=== PATIENT | male | born 1965 | race Caucasian/White ===

== ENCOUNTER 2017-11-29 19:16 | Emergency (ER) | payer SELFPAY ==
[~2017-11-29] VITALS: Ht 182.9 cm; Wt 99.8 kg
[~2017-11-29 19:16] MED LIST: ALBU90OI INH; Bactrim Ds Tab1 EACH PO; CEPH500 PO; CYCL10 PO; ERYT1OIN BOTHEYES; HYDACE10B PO; HYDACE5 PO; IBUP600 PO; METPRE4DP PO; Mupirocin22 GM TOP; NAPR500 PO; Norco 5-325 Ta1 EACH PO; PENVK250 PO; PRODEXEL PO; SULTRIDS PO; TRAM50 PO; TYLENOL PRN
[2017-11-29] MEDS ORDERED: Bactrim Ds Tab1 EACH PO (19:48)
[2017-11-29] MEDS ORDERED: CEPH500 PO (19:48)
== END 2017-11-29 20:10 | disposition home or self-care (01) ==
LOC: ER 19:16
DX: S71.111A Laceration without foreign body, right thigh, initial encounter (principal); L03.115 Cellulitis of right lower limb; Z23 Encounter for immunization; F17.200 Nicotine dependence, unspecified, uncomplicated; W26.8XXA Contact with other sharp object(s), not elsewhere classified, initial encounter
CPT/HCPCS: 90471; 90714; 99283

== ENCOUNTER 2017-12-04 23:01 | Emergency (ER) | payer SELFPAY ==
[~2017-12-04] VITALS: Ht 182.9 cm; Wt 99.8 kg
[2017-12-04] MEDS ORDERED: Bactrim Ds Tab1 EACH PO (23:34)
[2017-12-04] MEDS ORDERED: CEPH500 PO (23:34)
== END 2017-12-04 23:50 | disposition home or self-care (01) ==
LOC: ER 23:01
DX: L03.115 Cellulitis of right lower limb (principal); F17.210 Nicotine dependence, cigarettes, uncomplicated
CPT/HCPCS: 99283

== ENCOUNTER 2023-05-19 15:53 | Emergency (ER) | payer OTHER ==
[~2023-05-19] VITALS: Ht 182.9 cm; Wt 102.5 kg
[2023-05-19 16:32] LABS: BASOPHILS ABSOLUTE AUTO 0.03 K/mm3 (0.00-0.23); BASOPHILS PERCENT AUTO 1 % (0-2); EOSINOPHILS ABSOLUTE AUTO 0.14 K/mm3 (0.00-0.68); EOSINOPHILS PERCENT AUTO 2 % (0-6); Hematocrit 42.5 % (37.0-53.0); Hemoglobin 14.9 g/dL (13.5-17.5); IMMATURE GRAN ABSOLUTE AUTO 0.01 K/mm3 (0.00-0.10); IMMATURE GRAN PERCENT AUTO 0 % (0-1); LYMPHOCYTES ABSOLUTE AUTO 1.97 K/mm3 (0.84-5.20); LYMPHOCYTES PERCENT AUTO 32 % (21-46); MONOCYTES ABSOLUTE AUTO 0.58 K/mm3 (0.16-1.47); MONOCYTES PERCENT AUTO 9 % (4-13); Mean Corpuscular HGB 29.8 pg (26.0-34.0); Mean Corpuscular HGB Conc 35.1 g/dL (31.5-36.5); Mean Corpuscular Volume 85 fL (80-100); Mean Platelet Volume 9.7 fL (9.1-12.4); NEUTROPHILS ABSOLUTE AUTO 3.46 K/mm3 (1.96-9.15); NEUTROPHILS PERCENT AUTO 56 % (41-73); Platelet Count 244 K/mm3 (150-400); RDW Coefficient Variation 13.4 % (11.7-14.2); RDW Standard Deviation 41.9 fL (35.1-46.3); White Blood Cell Count 6.19 K/mm3 (4.00-11.30)
[2023-05-19 16:58] LABS: Albumin/Globulin Ratio 0.9 (0.8-1.8); Bilirubin, Total 0.5 mg/dL (0.1-1.0); Bun/Creatinine Ratio 19.2 (12.0-20.0); Calcium, Blood 9.2 mg/dL (8.5-10.1); Creatinine, Blood 1.25 mg/dL (0.60-1.20); Globulin, Blood 4.4 g/dL (2.2-4.0); Potassium, Blood 3.6 mmol/L (3.5-5.5); Total Protein, Blood 8.4 g/dL (6.4-8.2)
[2023-05-19 18:30] VITALS: BP 148/86
== END 2023-05-19 19:22 | disposition home or self-care (01) ==
LOC: ER 15:53
PROVIDERS: Physician Assistant
DX: E87.70 Fluid overload, unspecified (principal); F17.210 Nicotine dependence, cigarettes, uncomplicated; Z79.2 Long term (current) use of antibiotics
CPT/HCPCS: 71046; 80053; 83880; 84484; 85025; 93005; 93010; 96374; 99284-25; J1940

== ENCOUNTER 2024-11-07 12:01 | Emergency (ER) | payer OTHER ==
[~2024-11-07] VITALS: Ht 182.9 cm; Wt 104.3 kg
[2024-11-07 13:30] VITALS: BP 204/133
== END 2024-11-07 14:51 | disposition home or self-care (01) ==
LOC: ER 12:01
DX: L03.115 Cellulitis of right lower limb (principal); F17.210 Nicotine dependence, cigarettes, uncomplicated
CPT/HCPCS: 93971; 99283-25

== ENCOUNTER 2025-02-25 13:57 | Emergency (ER) | payer OTHER ==
[~2025-02-25] VITALS: Ht 182.9 cm; Wt 106.6 kg
[2025-02-25 14:26] VITALS: BP 193/106
[2025-02-25] MEDS ORDERED: Fluorescein Sod 1MG Opth Strips LEFTEYE ONE (15:05)
[2025-02-25] MEDS ORDERED: Tetracaine HCl/Pf 0.5% Opth Soln 4 ml LEFTEYE ONE (15:05)
[2025-02-25] MEDS ORDERED: Diphth,Pertuss(Acell),Tet Vac 0.5 ML VIAL IM ONE (16:15)
== END 2025-02-25 16:27 | disposition home or self-care (01) ==
LOC: ER 13:57
DX: T15.82XA Foreign body in other and multiple parts of external eye, left eye, initial encounter (principal); F17.210 Nicotine dependence, cigarettes, uncomplicated; Z59.89 Other problems related to housing and economic circumstances; W44.E9XA Other non-magnetic metal objects entering into or through a natural orifice, initial encounter
CPT/HCPCS: 70480; 90471; 90715; 99283-25; A9270

== ENCOUNTER 2025-04-12 07:34 | Inpatient (IN) | payer OTHER ==
[~2025-04-12] VITALS: Ht 182.9 cm; Wt 103.6 kg
[2025-04-12 08:09] LABS: BASOPHILS ABSOLUTE AUTO 0.07 K/mm3 (0.00-0.23); BASOPHILS PERCENT AUTO 1 % (0-2); EOSINOPHILS PERCENT AUTO 2 % (0-6); Hematocrit 45.6 % (37.0-53.0); IMMATURE GRAN ABSOLUTE AUTO 0.02 K/mm3 (0.00-0.10); IMMATURE GRAN PERCENT AUTO 0 % (0-1); LYMPHOCYTES ABSOLUTE AUTO 2.58 K/mm3 (0.84-5.20); LYMPHOCYTES PERCENT AUTO 30 % (21-46); MONOCYTES ABSOLUTE AUTO 0.81 K/mm3 (0.16-1.47); MONOCYTES PERCENT AUTO 10 % (4-13); Mean Corpuscular HGB 29.7 pg (26.0-34.0); Mean Corpuscular HGB Conc 32.9 g/dL (31.5-36.5); Mean Corpuscular Volume 90 fL (80-100); Mean Platelet Volume 9.8 fL (9.1-12.4); NEUTROPHILS ABSOLUTE AUTO 4.84 K/mm3 (1.96-9.15); NEUTROPHILS PERCENT AUTO 57 % (41-73); Platelet Count 238 K/mm3 (150-400); RDW Coefficient Variation 13.9 % (11.7-14.2); RDW Standard Deviation 46.1 fL (35.1-46.3); Red Blood Cell Count 5.05 M/mm3 (4.30-5.90); White Blood Cell Count 8.52 K/mm3 (4.00-11.30)
[2025-04-12 08:27] LABS: Albumin, Blood 3.8 g/dL (3.4-5.0); Albumin/Globulin Ratio 0.9 (0.8-1.8); Bilirubin, Total 0.4 mg/dL (0.1-1.0); Bun/Creatinine Ratio 11.4 (12.0-20.0); Calcium, Blood 8.3 mg/dL (8.5-10.1); Creatinine, Blood 1.14 mg/dL (0.60-1.20); Globulin, Blood 4.4 g/dL (2.2-4.0); Potassium, Blood 4.7 mmol/L (3.5-5.5); Total Protein, Blood 8.2 g/dL (6.4-8.2)
[2025-04-12] MEDS ORDERED: Metoprolol Tartrate 1 MG/ML 5 ML VIAL IV ONE (09:10)
[2025-04-12] MEDS ORDERED: Furosemide 10 MG/ML 4ML Vial IV ONE (09:10)
[2025-04-12] MEDS ORDERED: HYDROmorphone HCl/Pf 1MG SYR IV ONE (09:15)
[2025-04-12] MEDS ORDERED: Nitroglycerin 0.4 MG SUBL SL ONE (09:50)
[2025-04-12 11:33] LABS: U Amphetamine Screen DETECTED; U Barbituate Screen Not Detected; U Benzodiazapine Screen Not Detected; U Buprenorphine Screen Not Detected; U Cannabinoids Screen Not Detected; U Cocaine Screen Not Detected; U Methadone Screen Not Detected; U Methamphetamine Screen DETECTED; U Opiates Screen Not Detected; U Oxycodone Screen Not Detected; U Phencyclidine Screen Not Detected
[2025-04-12] MEDS ORDERED: Ondansetron 4 MG TAB PO PRN (12:00)
[2025-04-12] MEDS ORDERED: Magnesium Hydroxide Conc 10 ML UDC PO PRN (12:00)
[2025-04-12] MEDS ORDERED: Bisacodyl 10 MG Supp PR PRN (12:00)
[2025-04-12] MEDS ORDERED: Labetalol HCL 5 MG/ML 4ML Injection (Single Dose) IV PRN (12:05)
[2025-04-12] MEDS ORDERED: Acetaminophen 325 MG TABLET PO PRN (12:05)
[2025-04-12] MEDS ORDERED: TraZODone HCl 50 MG Tab PO PRN (12:05)
[2025-04-12 15:21] VITALS: BP 130/109
[2025-04-12] MEDS ORDERED: METO50ER PO (15:34)
[2025-04-12] MEDS ORDERED: ELIQUIS5 M2 PO (15:35)
[2025-04-12] MEDS ORDERED: FURO20 PO (15:35)
[2025-04-12] MEDS ORDERED: POTCHL20ER PO (15:35)
--- NOTE | 2025-04-12 18:41 | NUR ---
SHIFT SUMMARY: PT NEW ADMIT THIS SHIFT. PLEASANT AND COOPERATIVE WITH CARE. INDEPENDENT IN ROOM. NO C/O CHEST PAIN THIS SHIFT. ABDOMEN FIRM AND 1+ EDEMA NOTED TO LOWER EXTREMETIES. TROPONIN TRENDING DOWNWARD. NO SKIN ISSUES. TELE IN PLACE RUNNING AFIB @110 BPM. CALL LIGHT IN REACH. BED IN LOWEST POSITION.
[2025-04-12 19:44] VITALS: BP 121/99
[2025-04-12] MEDS ORDERED: Apixaban 5 MG Tab PO SCH (21:00)
[2025-04-12] MEDS ORDERED: Lactobacil 2-S.Thermo-Bifido 1 1 Cap PO SCH (21:00)
[2025-04-12] MEDS ORDERED: Famotidine 20 MG Tab PO SCH (21:00)
[2025-04-13 00:05] VITALS: BP 131/101
[2025-04-13 05:17] LABS: Hematocrit 44.5 % (37.0-53.0); Hemoglobin 14.7 g/dL (13.5-17.5); Mean Corpuscular HGB 29.4 pg (26.0-34.0); Mean Corpuscular Volume 89 fL (80-100); Platelet Count 220 K/mm3 (150-400); RDW Coefficient Variation 13.9 % (11.7-14.2); RDW Standard Deviation 45.2 fL (35.1-46.3); White Blood Cell Count 8.19 K/mm3 (4.00-11.30)
[2025-04-13 05:29] VITALS: BP 123/104
[2025-04-13 05:44] LABS: Magnesium, Blood 2.2 mg/dL (1.6-2.4)
[2025-04-13 05:46] LABS: Alanine Aminotransfer (ALT/SGP 26 U/L (12-78); Albumin, Blood 3.8 g/dL (3.4-5.0); Alk Phos 86 U/L (50-136); Anion Gap 6 mmol/L (3-11); Aspartate Aminotrans (AST/SGOT 22 U/L (12-37); Bilirubin, Total 0.7 mg/dL (0.1-1.0); Blood Urea Nitrogen 17 mg/dL (8-24); CHOL/HDL RATIO 4.7; CO2, Blood 30 mmol/L (21-32); Calcium, Blood 9.2 mg/dL (8.5-10.1); Chloride, Blood 103 mmol/L (98-108); Cholesterol 145 mg/dL (50-200); Creatinine, Blood 1.21 mg/dL (0.60-1.20); Globulin, Blood 3.9 g/dL (2.2-4.0); Glomerular Filtration Rate 68 (60-); Glucose, Blood 114 mg/dL (70-99); HDL Cholesterol 31 mg/dL (>39); LDL/HDL RATIO 2.8; Low Density Lipoprotein Chol 87 mg/dL (0-110); Potassium, Blood 5.2 mmol/L (3.5-5.5); Sodium, Blood 134 mmol/L (136-145); Total Protein, Blood 7.7 g/dL (6.4-8.2); Triglycerides 133 mg/dL (30-160); Very Low Density Lipoprot Chol 26 mg/dL (6-32)
[2025-04-13 07:28] VITALS: BP 127/102
[2025-04-13] MEDS ORDERED: Nitroglycerin 0.4 MG SUBL SL PRN (07:30)
[2025-04-13] MEDS ORDERED: Morphine Sulfate 4 MG/1 ML Injection IV PRN (07:35)
[2025-04-13] MEDS ORDERED: OxyCODONE HCL 5 MG TAB PO PRN (07:35)
--- NOTE | 2025-04-13 08:12 | NUR ---
PT HAD CALL LIGHT ON AT APPROX 0730. THIS RN WALKED INTO ROOM WHEN PT STATED HE HAD SIGNIFICANT CHEST PAIN. CALLED AND SPOKE WITH DR. MORRIS WITH TELEPHONE ORDERS OF NITROGLYCERIN, STAT EKG, AND STAT TROPONIN. EKG COMPLETED BY BOAT MECHANIC. NITRO X2 PROVIDED WELL PRN IV MORPHINE. EKG SHOWED AFIB c RVR. CHEST PAIN DOWN TO 2/10. CALL LIGHT IN REACH. PT AWARE TO CALL IF EXPERIENCING REPEAT SYMPTOMS.
[2025-04-13] MEDS ORDERED: Metoprolol Tartrate 25 MG Tab PO SCH (09:00)
[2025-04-13] MEDS ORDERED: Spironolactone 12.5 MG TAB PO SCH (09:00)
[2025-04-13] MEDS ORDERED: Enoxaparin 30 MG/0.3 ML SYR SC SCH (09:00)
[2025-04-13] MEDS ORDERED: Furosemide 10 MG/ML 4ML Vial IV SCH (09:00)
[2025-04-13] MEDS ORDERED: Furosemide 10 MG / ML 2ML Vial IV SCH (09:00)
[2025-04-13] MEDS ORDERED: Empagliflozin 10 MG TAB PO SCH (09:00)
[2025-04-13] MEDS ORDERED: Metoprolol Succinate 50 MG TABCR PO SCH (13:00)
[2025-04-13 15:13] VITALS: BP 138/104
--- NOTE | 2025-04-13 16:58 | NUR ---
SHIFT SUMMARY: PT A&O X4. PLEASANT AND COOPERATIVE WITH CARE. INDEPENDENT IN ROOM. PT C/O CHEST PAIN NEAR BEGINNING OF SHIFT (SEE NOTES). NO CHEST PAIN SINCE THIS AM. INCREASED DIURETICS GIVEN W/O COMPLICATIONS. ON 1800mL FLUID RESTRICTION. CARDIOLOGY CONSULTED. PLAN TO HOLD ELIQUIS TONIGHT AND BE NPO AFTER MIDNIGHT FOR ANGIOGRAM TOMORROW. TELE IN PLACE RUNNING AFIB. CALL LIGHT IN REACH. BED IN LOWEST POSITION.
[2025-04-13 19:37] VITALS: BP 125/97
[2025-04-13] MEDS ORDERED: Sacubitril/Valsartan 24 MG-26 MG Tab PO SCH (21:00)
[2025-04-14] VITALS (13 sets, daily range): BP systolic 102–147; BP diastolic 72–118
--- NOTE | 2025-04-14 05:28 | NUR ---
SHIFT SUMMARY; PATIENT SLEPT IN LONG INTERVALS. GIVEN PRN TRAZADONE. TELE AFIB 93 WITH A BBB. NPO AFTER MIDNIGHT FOR AM PROCEDURE. DENIED CP.
[2025-04-14 06:09] LABS: Hematocrit 46.7 % (37.0-53.0); Hemoglobin 15.7 g/dL (13.5-17.5); Mean Corpuscular HGB Conc 33.6 g/dL (31.5-36.5); Mean Corpuscular Volume 86 fL (80-100); Mean Platelet Volume 10.2 fL (9.1-12.4); Platelet Count 246 K/mm3 (150-400); RDW Coefficient Variation 13.5 % (11.7-14.2); RDW Standard Deviation 42.3 fL (35.1-46.3); Red Blood Cell Count 5.41 M/mm3 (4.30-5.90); White Blood Cell Count 8.31 K/mm3 (4.00-11.30)
[2025-04-14 06:35] LABS: Albumin, Blood 3.7 g/dL (3.4-5.0); Albumin/Globulin Ratio 0.9 (0.8-1.8); Bilirubin, Total 1.1 mg/dL (0.1-1.0); Bun/Creatinine Ratio 16.4 (12.0-20.0); Calcium, Blood 9.4 mg/dL (8.5-10.1); Creatinine, Blood 1.34 mg/dL (0.60-1.20); Globulin, Blood 4.2 g/dL (2.2-4.0); Magnesium, Blood 2.3 mg/dL (1.6-2.4); Potassium, Blood 4.2 mmol/L (3.5-5.5); Total Protein, Blood 7.9 g/dL (6.4-8.2)
[2025-04-14] MEDS ORDERED: NS 1,000 ML IV ONE ×2 (08:57→09:19)
[2025-04-14] MEDS ORDERED: NiCARdipine HCL 1,000 MCG/5 ML SYR ONE (08:57)
[2025-04-14] MEDS ORDERED: NS 250 ML IV ONE (08:57)
[2025-04-14] MEDS ORDERED: Nitroglycerin 2 MG/20 ML BTL ONE (08:57)
[2025-04-14] MEDS ORDERED: Metoprolol Succinate 50 MG TABCR PO SCH (09:00)
[2025-04-14] MEDS ORDERED: Furosemide 40 MG Tab PO SCH (09:00)
--- NOTE | 2025-04-14 09:45 | NUR ---
PT TAKEN TO GETTERING FILAMENT MACHINE OPERATOR VIA WHEELCHAIR.
[2025-04-14] MEDS ORDERED: Midazolam HCl 1MG / ML 2ML Vial ONE ×2 (09:49→10:52)
[2025-04-14] MEDS ORDERED: FentaNYL Citrate 50 MCG/ML 2 ML Injection ONE ×3 (09:49→11:39)
--- NOTE | 2025-04-14 09:55 | NUR ---
REPORT GIVEN TO U 05 NURSE. PT BELONGINGS TRANSFERED.
[2025-04-14] MEDS ORDERED: Verapamil HCL 2.5 MG/ML 2ML Injection ONE (10:02)
[2025-04-14] MEDS ORDERED: Heparin Sodium 1000 Units/ML 10ML MDV ONE ×4 (10:14→12:06)
[2025-04-14] MEDS ORDERED: Clopidogrel Bisulfate 300 MG TABLET ONE (10:29)
[2025-04-14] MEDS ORDERED: Aspirin 325 MG Tab ONE (10:29)
[2025-04-14] MEDS ORDERED: NS 500 ML IV ONE (10:31)
[2025-04-14] MEDS ORDERED: Mag Hydrox/AL Hydrox/Simeth 30 ML UDC ONE (11:41)
[2025-04-14] MEDS ORDERED: NS 1,000 ML IV SCH (12:30)
--- NOTE | 2025-04-14 12:30 | NUR ---
PCU ARRIVAL PT ARRIVING TO PCU 05 FROM [facility]. PT ALERT AND COMMUNICATING APPROPRIATELY W STAFF. PT REPORTING CHEST PAIN 4/10 THAT IS DECREASING FROM WHAT IT WAS IN THE [facility]. PT SLIGHTLY DROWSY FALLING ASLEEP W/O STIMULATION. PT EDUCATED ON IMPORTANCE OF NOT USING R ARM/HAND AFTER PCI. PT AGREEING TO NOT USE R UPPER EXTREMITY AND THAT HE WILL CALL STAFF FOR ANY ASSISTANCE. POST PCI EKG DONE. VSS ON RM AIR. MONITOR SHOWING AFIB 90'S-100'S. BAG MACHINE OPERATOR HELPER NOTIFIED.
[2025-04-14] MEDS ORDERED: Calcium Carbonate 500 MG Tab Chew PO PRN (15:15)
[2025-04-14] MEDS ORDERED: Mag Hydrox/AL Hydrox/Simeth 30 ML UDC PO PRN (15:25)
[2025-04-14] MEDS ORDERED: Digoxin 0.25 MG/ML 2ML Amp IV ONE (18:00)
--- NOTE | 2025-04-14 18:11 | NUR ---
DAY SHIFT SUMMARY PT ARRIVED FROM ASSISTANT PROFESSOR OF FORESTRY TO PCU 05 THIS SHIFT. PT SLIGHTLY DISORIENTED UPON ARRIVAL BUT HIS MENTATION CLEARED SHORTLY AFTER ARRIVAL. PT REPORTING CHEST DISCOMFORT INITIALLY AFTER ARRIVAL WHICH WAS TREATED W PAIN MEDICATION AND ANTACIDS W GOOD RELIEF. PT'S MONITOR SHOWING AFIB 80'S-100'S, PT GIVEN FIRST DOSE OF DIGOXIN THIS SHIFT. BP WNL AND STABLE. SPO2 >92% ON RM AIR. R RADIAL SITE RECOVERED AND IS C/D/I W/O S/S OF BLEEDING OR HEMATOMA. PT TOLERATING PO INTAKE. WILL REPORT TO ONCOMING RN.
--- NOTE | 2025-04-14 20:32 | NUR ---
ASSUMED CARE OF THIS PATIENT AT 1900. PT R RADIAL SITE RECOVERED, FREE OF REDDNESS OR HEMATOMA. BP ELAVATED THIS EVENING. PILLS GIVEN WHOLE WITH WATER SNACKS PROVIDED TO PATIENT. USES CALL LIGHT APPROT. ABLE TO MAKE NEEDS KNOWN. BED IN LOWEST POSTION FOR SAFETY, CALL LIGHT IN REACH.
[2025-04-14] MEDS ORDERED: Atorvastatin 40 MG Tab PO SCH (21:00)
[2025-04-15 00:21] VITALS: BP 119/88
[2025-04-15 04:53] VITALS: BP 128/89
--- NOTE | 2025-04-15 05:52 | NUR ---
NOC SHIFT SUMMARY PT REMAINS A+O X4 ABLE TO MAKE NEEDS KNOWN. HE IS A SBA TO THE BR FOR VOIDING. DENIES CHEST PAIN OR PRESSURE T/O SHIFT. DENIES NEEDS OF ANY KIND. NO ACUTE ISSUES OVER NIGHT. PT STILL EXPIERENCING SOB WITH ACTIVITY. SATURATIONS >90% ON CONTINUS PULSE OX. BP WAS ELAVATED IN THE BEGINING OF SHIFT, STABLE AT LAST VITALS CHECK. BED IN LOWEST POSTION, CALL LIGHT IN REACH. WILL REPORT TO ONCOMING RN.
[2025-04-15 06:13] LABS: Hematocrit 47.9 % (37.0-53.0); Hemoglobin 16.3 g/dL (13.5-17.5); Mean Corpuscular HGB 29.6 pg (26.0-34.0); Mean Corpuscular Volume 87 fL (80-100); Platelet Count 249 K/mm3 (150-400); RDW Coefficient Variation 13.5 % (11.7-14.2); RDW Standard Deviation 42.8 fL (35.1-46.3); White Blood Cell Count 9.57 K/mm3 (4.00-11.30)
[2025-04-15 06:42] LABS: Anion Gap 11 mmol/L (3-11); Blood Urea Nitrogen 20 mg/dL (8-24); Bun/Creatinine Ratio 16.5 (12.0-20.0); CO2, Blood 23 mmol/L (21-32); Chloride, Blood 102 mmol/L (98-108); Cholesterol 179 mg/dL (50-200); Creatinine, Blood 1.21 mg/dL (0.60-1.20); Glomerular Filtration Rate 68 (60-); Glucose, Blood 184 mg/dL (70-99); HDL Cholesterol 30 mg/dL (>39); LDL/HDL RATIO 3.8; Low Density Lipoprotein Chol 115 mg/dL (0-110); Magnesium, Blood 2.3 mg/dL (1.6-2.4); Potassium, Blood 4.5 mmol/L (3.5-5.5); Sodium, Blood 131 mmol/L (136-145); Triglycerides 168 mg/dL (30-160); Very Low Density Lipoprot Chol 33 mg/dL (6-32)
[2025-04-15] MEDS ORDERED: Pantoprazole Sodium 20 MG Tab PO SCH (07:00)
[2025-04-15 07:38] VITALS: BP 101/78
[2025-04-15 08:55] VITALS: BP 119/80
[2025-04-15] MEDS ORDERED: Metoprolol Succinate 50 MG TABCR PO SCH (09:00)
[2025-04-15] MEDS ORDERED: Digoxin 0.125 MG Tab PO SCH (09:00)
[2025-04-15] MEDS ORDERED: Metoprolol Succinate 25 MG TABCR PO SCH (09:00)
[2025-04-15] MEDS ORDERED: Apixaban 5 MG Tab PO SCH (09:00)
[2025-04-15] MEDS ORDERED: Clopidogrel Bisulfate 75 MG Tab PO SCH (09:00)
[2025-04-15] MEDS ORDERED: Aspirin 81 MG TabEC PO SCH (09:00)
[2025-04-15 11:23] VITALS: BP 115/98
[2025-04-15] MEDS ORDERED: Aspir 8181 MG PO (11:33)
[2025-04-15] MEDS ORDERED: DIGOX125 MC1 PO (11:34)
[2025-04-15] MEDS ORDERED: ATOR40TA PO (11:34)
[2025-04-15] MEDS ORDERED: CLOP75 PO (11:34)
[2025-04-15] MEDS ORDERED: JARDIANCE10 MG PO (11:35)
[2025-04-15] MEDS ORDERED: ENTRESTO 24 MG1 EACH PO (11:35)
[2025-04-15] MEDS ORDERED: SPIRONOLACTONE PO (11:36)
--- NOTE | 2025-04-15 13:02 | NUR ---
PT DISCHARGED TO HOME WITH DISCHARGE ORDERS. VITALS HAS BEEN STABLE. PT DENIES CHEST PAIN/PRESSURE. RIGHT RAFIAL SITE REMAINED CDI, NO BLEEDING OR HEMATOMA NOTED. ALL DISCHARGE INSTRUCTIONS AND NEW MEDICATIONS AND POST ANGIO AND HEART FAILURE EDUCATION DISCLOSED WITHT THE PT. PT VERBALIZED UNDERSTANDING. PT WAS ACCOMPANIED VIA WHEELCHAIR ALL BELONGINGS SENT WITH THE PT.
== END 2025-04-15 12:41 | disposition home or self-care (01) | DRG 321 ==
LOC: ER 07:34 → MEDS 11:58 → ERHOLD 11:58 → MEDS 15:06 → PCU 04-14 10:13
PROVIDERS: Physician Assistant; Student in an Organized Health Care Education/Training Program; ADMIT Hospitalist
PROC: 027035Z Dilation of Coronary Artery, One Artery with Two Drug-eluting Intraluminal Devices, Percutaneous Approach (ICD-10-PCS; principal; 2025-04-14)
PROC: 4A023N7 Measurement of Cardiac Sampling and Pressure, Left Heart, Percutaneous Approach (ICD-10-PCS; 2025-04-14)
PROC: B2111ZZ Fluoroscopy of Multiple Coronary Arteries using Low Osmolar Contrast (ICD-10-PCS; 2025-04-14)
PROC: B2151ZZ Fluoroscopy of Left Heart using Low Osmolar Contrast (ICD-10-PCS; 2025-04-14)
DX: I25.119 Atherosclerotic heart disease of native coronary artery with unspecified angina pectoris (principal); I50.23 Acute on chronic systolic (congestive) heart failure; I48.19 Other persistent atrial fibrillation; I24.89 Other forms of acute ischemic heart disease; M54.9 Dorsalgia, unspecified; G89.29 Other chronic pain; E66.9 Obesity, unspecified; E78.6 Lipoprotein deficiency; F15.10 Other stimulant abuse, uncomplicated; I08.0 Rheumatic disorders of both mitral and aortic valves; I27.20 Pulmonary hypertension, unspecified; Z87.891 Personal history of nicotine dependence; Z79.01 Long term (current) use of anticoagulants; Z68.32 Body mass index [BMI] 32.0-32.9, adult; Z71.51 Drug abuse counseling and surveillance of drug abuser; Z79.899 Other long term (current) drug therapy; Z79.2 Long term (current) use of antibiotics
CPT/HCPCS: 36415; 71046; 74177; 76937; 80048; 80053; 80061; 83690; 83735; 83880; 84484; 85025; 85027; 85347; 93005; 93010; 93306; 93458; 93571; 94760; 94762; 96374-59; 96375; 99152; 99153; 99285-25; A9270; C1725; C1769; C1874; C1887; C1894; C9600; C9601; J1160; J1171; J1644; J1938; J2250; J2270; J2470; J3010; J7030; J7040; J7050; Q9967